=== PATIENT | female | born 1950 | race Caucasian/White ===

== ENCOUNTER → 2020-08-08 | Outpatient (CLI) | payer MEDICARE, BC ==
--- NOTE | 2020-08-08 14:15 | RADIOLOGY REPORT (SQ) ---
EXAM DESCRIPTION: MRI RT UPPER JOINT WITHOUT IMAGES COMPLETED DATE/TIME: 08/08/2020 1:56 pm REASON FOR STUDY: (M75.101)UNSP ROTATR-CUFF TEAR/RUPTR OF RIGHT SHOULDER, NOT TRAUMA M75.101 UNSP R OTATR-CUFF TEAR/RUPTR OF RIGHT SHOULDER, NOT T COMPARISON: None. TECHNIQUE: Right shoulder images acquired and stored on PACS. Multiplanar imaging to include fat sen sitive sequences such as T1, water sensitive sequences such as FST2/STIR, cartilage sensitive sequenc es such as FSPD/gradient-echo sequences. LIMITATIONS: None. FINDINGS: BONE MARROW AND CORTEX: No worrisome bone lesions or marrow replacement. No occult fractur es. JOINT OR BURSAL EFFUSION: No significant joint or bursal fluid. No suggestion of loose bodies. GLENO-HUMERAL ARTICULATION: No focal chondral lesions. Superior migration of the humeral head relate d to cuff tear. ACROMION AND AC JOINT: Subacromial narrowing. No significant acromial osteophytes. AC joint witho ut significant degenerative overgrowth, mild arthropathy evident. ROTATOR CUFF AND INTERVAL: Massive cuff tear involves all portions, full-thickness with retraction to the level of the glenohumeral joint. Extensive intramuscular and deep soft tissue edema and fluid. LABRUM AND BICEPS LABRAL COMPLEX: Limited assessment of the superior labrum. The long head biceps tendon is medially dislocated but otherwise grossly intact. REMAINDER OF LABRUM AND IGHL : Degenerative blunting. PERIARTICULAR AND ADJACENT SOFT TISSUES: No masses or abnormal nodes. OTHER: No other significant finding. IMPRESSION: 1. Massive full-thickness rotator cuff tear with retraction and extensive deep soft tissue edema. Th ere is associated medial biceps dislocation. TECHNICAL DOCUMENTATION: JOB ID: [id number] 2010 [employer]- All Rights Reserved Reading location - IP/workstation name: [email or web address]
== END ==
LOC: RAD 12:51
PROVIDERS: ATTEND Specialist/Technologist Athletic Trainer
DX: M75.101 Unspecified rotator cuff tear or rupture of right shoulder, not specified as traumatic (principal)